=== PATIENT | female | born 1990 | race Caucasian/White ===

== ENCOUNTER 2020-08-04 16:50 | Emergency (ER) | payer BC ==
[~2020-08-04] VITALS: Ht 167.6 cm; Wt 56.7 kg
--- NOTE | 2020-08-04 17:16 | NUR ---
patient came in to the er c/o RLQ pain radiating to right lower back since this morning, 9/10 pain scale. On room air, breathing evenly and unlabored. connected to the monitor and pulse ox. will continue to monitor accordingly.
[2020-08-04 17:25] LABS: BASOPHILS % (AUTO) 0.5 % (0.0-2.0); EOSINOPHILS % (AUTO) 0.6 % (0.0-6.0); HEMATOCRIT 46 % (33-45); HEMOGLOBIN 15.5 g/dL (11.5-14.8); LYMPHOCYTES % (AUTO) 29.4 % (20.0-44.0); MEAN CORPUSCULAR HGB CONC 34 g/dl (31.0-36.0); MEAN CORPUSCULAR VOLUME 88 fL (82-100); MONOCYTES # (AUTO) 0.6 /CMM (0.1-1.30); MONOCYTES % (AUTO) 8.5 % (2.0-12.0); NEUTROPHILS # (AUTO) 4.2 /CMM (1.8-8.9); PLATELET COUNT (AUTO) 193 /CMM (150-450); WHITE BLOOD COUNT (AUTO) 6.9 K/uL (4.3-11.0)
[2020-08-04 18:08] LABS: BILIRUBIN,URINE SMALL (NEGATIVE); COLOR,URINE YELLOW (YELLOW); LEUKOCYTE ESTERASE ,URINE Negative (NEGATIVE); NITRITE, URINE Negative (NEGATIVE); PH,URINE 5.5 (5.0-8.0); PROTEIN,URINE Negative (NEGATIVE); UGLUCOSE Negative (NEGATIVE); UROBILINOGEN,URINE 0.2 EU/dL (0.2)
[2020-08-04 18:09] LABS: CALCIUM, SERUM 9.5 mg/dL (8.5-10.1); CREATININE 0.8 mg/dL (0.6-1.3)
[2020-08-04] MEDS ORDERED: IV NS 0.9% 250 ML IV ONE (18:16)
[2020-08-04] MEDS ORDERED: IOHEXOL-300 100 ML VIAL IV ONE (18:16)
[2020-08-04 18:17] LABS: ALBUMIN 4.3 g/dL (3.4-5.0); BILIRUBIN,DIRECT 0.1 mg/dL (0.0-0.2); BILIRUBIN,TOTAL 0.5 mg/dL (0.2-1.0)
[2020-08-04] MEDS ORDERED: KETOROLAC TROMETHAMINE 15 MG/ML VIAL ONE (18:27)
[2020-08-04] MEDS ORDERED: diphenhydrAMINE HCL 50 MG/ML VIAL ONE (18:27)
[2020-08-04] MEDS ORDERED: KETOROLAC TROMETHAMINE INJ 30 MG/ML VIAL IV ONE (18:30)
[2020-08-04] MEDS ORDERED: diphenhydrAMINE HCL 50 MG/ML VIAL IV ONE (18:30)
[2020-08-04 18:36] LABS: BACTERIA,URINE Rare /HPF (None Seen); SQUAMOUS EPITHELIAL CELL,UR Few /HPF (None Seen); WBC,URINE NONE SEEN /HPF (0-3)
[2020-08-04] MEDS ORDERED: IBUP-1958 PO (19:39)
--- NOTE | 2020-08-04 19:48 | NUR ---
Patient discharged to home in stable condition. Written and verbal after care instructions given. Patient verbalizes understanding of instruction.
--- NOTE | 2020-08-04 19:48 | NUR ---
IV removed. Catheter intact and site benign. Pressure and 4x4 applied to site. No bleeding noted.
[2020-08-04 19:49] VITALS: BP 123/76
== END 2020-08-04 19:50 | disposition home or self-care (01) ==
LOC: ER 16:50
DX: N83.201 Unspecified ovarian cyst, right side (principal); Z91.013 Allergy to seafood; Z88.2 Allergy status to sulfonamides; Z88.8 Allergy status to other drugs, medicaments and biological substances; Z79.899 Other long term (current) drug therapy
CPT/HCPCS: 36415; 74177; 80048; 80076; 81001; 83690; 84703; 85025; 96374; 96375; 99285; J1200; J1885; J7050; Q9967